=== PATIENT | female | born 1970 | race Caucasian/White ===

== ENCOUNTER 2021-01-23 07:34 | Observation (INO) | payer OTHER ==
[2021-01-22 14:33] LABS: BASOPHILS % 0.7 % (0.0-1.0); EOSINOPHILS # (AUTO) 0.1 (0.0-0.4); EOSINOPHILS % 1.5 % (0.0-6.0); HEMATOCRIT 36.6 % (34.2-44.1); HEMOGLOBIN 12.5 g/dL (12.0-16.0); LYMPHOCYTES # (AUTO) 1.9 (1.0-3.2); LYMPHOCYTES % 31.6 % (18.0-39.1); MEAN CORPUSCULAR HEMOGLOBIN 30.4 pg (28-32); MEAN CORPUSCULAR HGB CONC 34.2 g/dL (31-35); MEAN CORPUSCULAR VOLUME 89.1 fL (81-99); MONOCYTES # (AUTO) 0.5 (0.2-0.8); MONOCYTES % 9.2 % (4.4-11.3); NEUTROPHILS # (AUTO) 3.3 (2.1-6.9); NEUTROPHILS % 56.8 % (38.7-80.0); PLATELET COUNT 222 x10e3/uL (140-360); RED BLOOD COUNT 4.11 x10e6/uL (3.6-5.1); RED CELL DISTRIBUTION WIDTH 12.6 % (11.7-14.4)
[2021-01-22 14:48] LABS: ANION GAP 13.6 mmol/L (8-16); BLOOD UREA NITROGEN 12 mg/dL (7-26); BUN/CREATININE RATIO 17 (6-25); CALCIUM 8.8 mg/dL (8.4-10.2); CARBON DIOXIDE 23 mmol/L (22-29); CHLORIDE 109 mmol/L (98-107); CREATININE, SERUM 0.71 mg/dL (0.57-1.11); EST GLOMERULAR FILTRATION RATE > 60 ML/MIN (60-); GLUCOSE 99 mg/dL (74-118); POTASSIUM 4.6 mmol/L (3.5-5.1); SODIUM 141 mmol/L (136-145)
[2021-01-22 14:49] LABS: INR 0.85; PROTHROMBIN TIME 12.2 seconds (11.9-14.5)
[2021-01-22 14:50] LABS: PARTIAL THROMBOPLASTIN TIME 28.1 seconds (23.8-35.5)
[~2021-01-23] VITALS: Ht 162.6 cm; Wt 101.6 kg
[~2021-01-23 07:34] MED LIST: ACETAMINOPHEN 1000 MG/100 ML 100 ML IV ONE; GABAPENTIN300 MG PO; IBUPROFEN 800MG/ 200ML 200 ML IV ONE; INDERAL LA80 MG PO; KLONOPIN1 MG PO; LIDOCAINE HCL (LTA) 4 ML SOLN ONE; LIOTHYRONINE SO5 MCG PO; TYROSINE PO; XYZAL5 MG PO; ZOLOFT100 MG PO; [UNRECOGNIZED DRUG - OTHER] PO
[2021-01-23] MEDS ORDERED: CEFAZOLIN SOD 1 GM/NS 50ML 100 ML IV ONE (09:12)
[2021-01-23] MEDS: HYDROMORPHONE 2MG/ML 2 MG/ML ML IV PRN ×2 (10:16→21:27)
[2021-01-23] MEDS: LACTATED RINGER'S 1,000 ML IV SCH ×2 (11:00→19:20)
[2021-01-23] MEDS ORDERED: ONDANSETRON HCL INJ 2MG/ML 2ML 2 MG/ML VIAL IV PRN (11:00)
[2021-01-23] MEDS ORDERED: ACETAMINOPHEN 325 MG TAB PO PRN (11:00)
[2021-01-23] MEDS ORDERED: MAGNESIUM/ALUMINUM/SIMETHICONE 30 ML UDC PO PRN (11:00)
[2021-01-23] MEDS ORDERED: PROMETHAZINE HCL (IM) 25 MG/ML VIAL IM PRN (11:00)
[2021-01-23] MEDS ORDERED: MORPHINE SULFATE 5 MG/ML VIAL IM PRN (11:00)
[2021-01-23] MEDS ORDERED: HYDROCODON-ACE1 EA12 PO (11:02)
[2021-01-23] MEDS ORDERED: ZOFRAN4 MG PO (11:05)
[2021-01-23] MEDS ORDERED: CARISOPRODOL 350 MG TAB ONE (13:38)
[2021-01-23] MEDS ORDERED: FENTANYL CITRATE/PF 100MCG/2 ML INJ ONE (14:34)
[2021-01-23 14:50] VITALS: BP 103/68
[2021-01-23 15:21] VITALS: BP 105/55
[2021-01-23 15:23] VITALS: BP 105/55
[2021-01-23 15:26] VITALS: BP 105/55
[2021-01-23 15:27] VITALS: BP 105/55
[2021-01-23] MEDS: OXYCODONE/ACETAMINOPHEN 5-325 1 EACH TABLET PO PRN (17:16)
[2021-01-23] MEDS: CEFAZOLIN SOD 1 GM/NS 50ML 50 ML IV SCH (17:19)
[2021-01-23 20:00] VITALS: BP 107/68
[2021-01-23] MEDS ORDERED: ZOLPIDEM TARTRATE 5 MG TAB PO PRN (21:00)
[2021-01-23] MEDS ORDERED: CLONAZEPAM 1 MG TAB PO SCH (21:00)
[2021-01-23] MEDS ORDERED: LORATADINE 10 MG TAB PO SCH (21:00)
[2021-01-23] MEDS ORDERED: SERTRALINE HCL 100 MG TAB PO SCH (21:00)
[2021-01-23] MEDS ORDERED: GABAPENTIN 300 MG CAP PO SCH (21:00)
[2021-01-23] MEDS: CARISOPRODOL 350 MG TAB PO PRN (21:27)
[2021-01-24] VITALS: BP 109/58
[2021-01-24] MEDS: CEFAZOLIN SOD 1 GM/NS 50ML 50 ML IV SCH ×2 (02:56→08:39)
[2021-01-24 04:00] VITALS: BP 104/63
[2021-01-24] MEDS: HYDROMORPHONE 2MG/ML 2 MG/ML ML IV PRN (05:13)
[2021-01-24] MEDS: CARISOPRODOL 350 MG TAB PO PRN ×2 (05:13→11:00)
[2021-01-24] MEDS ORDERED: LIOTHYRONINE SODIUM 5 MCG TAB PO SCH (06:30)
[2021-01-24 08:03] VITALS: BP 104/70
[2021-01-24 08:45] VITALS: BP 104/70
[2021-01-24] MEDS ORDERED: PROPRANOLOL HCL 80 MG CAPCR PO SCH (09:00)
[2021-01-24] MEDS: OXYCODONE/ACETAMINOPHEN 5-325 1 EACH TABLET PO PRN (11:00)
[2021-01-24 11:30] VITALS: BP_SYST 97; BP_SYST 98; BP_DIAS 70; BP_DIAS 71
== END 2021-01-24 11:38 | disposition home or self-care (01) ==
LOC: OR 07:34 → PACU V 13:58 → MED/SURG 14:50
PROVIDERS: ADMIT Neurological Surgery; ATTEND Neurological Surgery
DX: M50.123 Cervical disc disorder at C6-C7 level with radiculopathy (principal); Z20.822 Contact with and (suspected) exposure to COVID-19; Z01.818 Encounter for other preprocedural examination; G47.33 Obstructive sleep apnea (adult) (pediatric); E03.9 Hypothyroidism, unspecified
CPT/HCPCS: 20931; 22551; 22845; 36415; 71046; 72040; 77003; 80048; 85025; 85610; 85730; 86850; 86900; 88304; 88311; 93005; C1713 ×2; G0378 ×2; J0131; J0690 ×2; J1170 ×2; J3010; U0002